=== PATIENT | male | born 1965 | race African-American/Black ===

== ENCOUNTER 2019-01-30 11:52 | Inpatient (IN) | payer OTHER ==
[2019-01-30 14:25] VITALS: BMI 43.5
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
[2019-01-30] MEDS ORDERED: MAGNESIUM HYDROX 2400MG/30ML ORAL SUSPENSION 30 ML CUP PO PRN (16:54)
[2019-01-30] MEDS ORDERED: IBUPROFEN 400 MG TABLET (FP) PO PRN (16:54)
[2019-01-30] MEDS ORDERED: MAGNESIUM CITRATE 300 ML BOTTLE PO PRN (16:54)
[2019-01-30] MEDS ORDERED: MENTHOL/PHENOL 1 EACH UD MM PRN (16:54)
[2019-01-30] MEDS ORDERED: MAG HYDROX/AL HYDROX/SIMETH 30 ML UNIT-DOSE CUP PO PRN (16:54)
[2019-01-30] MEDS ORDERED: hydrOXYzine PAMOATE 25 MG CAPSULE (FP) PO PRN (16:54)
[2019-01-30] MEDS ORDERED: P-EPHED 60MG/TRIPROLIDI 2.5MG TABLET PO PRN (16:54)
[2019-01-30] MEDS ORDERED: ACETAMINOPHEN 325 MG TABLET (FP) PO PRN (16:54)
[2019-01-30] MEDS ORDERED: guaiFENesin 200 MG/10 ML 10 ML UNIT-DOSE CUPS PO PRN (16:54)
[2019-01-30] MEDS ORDERED: LOPERAMIDE HCL 2 MG CAPSULE PO PRN (16:54)
[2019-01-30] MEDS ORDERED: TUBERCULIN PPD 5 TU/0.1ML VIAL ID ONE (19:30)
[2019-01-30] MEDS: THIAMINE HCL 100 MG TABLET (FP) PO SCH (21:21)
[2019-01-30] MEDS: MELATONIN 5 MG TABLETS PO PRN (21:21)
[2019-01-31 09:22] LABS: PH,URINE 5.5 (5.0-8.0); URINE APPEARANCE CLEAR; URINE BILIRUBIN NEGATIVE (NEGATIVE); URINE COLOR YELLOW; URINE GLUCOSE (UA) NEGATIVE (NEGATIVE); URINE KETONE NEGATIVE (NEGATIVE); URINE LEUK ESTERASE NEGATIVE (NEGATIVE); URINE NITRITE NEGATIVE (NEGATIVE); URINE PROTEIN NEGATIVE (NEGATIVE); URINE UROBILINOGEN 0.2 mg/dL (0.2-1.0)
[2019-01-31] MEDS: PRENATAL VITAMINS W/ FOLIC ACID TABLET (FP) PO SCH (09:41)
--- NOTE | 2019-01-31 11:26 | EKG ---
Test Reason : Blood Pressure : / mmHG Vent. Rate : 059 BPM Atrial Rate : 059 BPM P-R Int : 170 ms QRS Dur : 088 ms QT Int : 438 ms P-R-T Axes : 054 055 -31 degrees QTc Int : 433 ms SINUS BRADYCARDIA T WAVE ABNORMALITY, CONSIDER INFERIOR ISCHEMIA T WAVE ABNORMALITY, CONSIDER ANTEROLATERAL ISCHEMIA ABNORMAL ECG WHEN COMPARED WITH ECG OF 09-JUN-2017 06:02, NO SIGNIFICANT CHANGE WAS FOUND Confirmed by TALA HORTON MD ([id number]) on 01/31/2019 11:26:30 AM Referred By: CHRISTY CASEY Confirmed By:TALA HORTON MD
[2019-01-31 11:47] LABS: HEMATOCRIT 43.8 % (35.4-49); HEMOGLOBIN 14.3 GM/dL (11.7-16.9); MCH 27.4 pg (25.7-33.7); MCHC 32.7 g/dl (32.0-35.9); MEAN CELL VOLUME 83.6 fl (80-96); MEAN PLT VOLUME 10.1 fl (7.5-11.1); PLATELET COUNT 248 K/MM3 (134-434); RBC 5.24 M/mm3 (4.00-5.60); RDW 15.2 % (11.9-15.9); WHITE BLOOD COUNT 6.5 K/mm3 (4.0-10.0)
[2019-01-31 12:05] LABS: ALBUMIN 3.7 g/dl (3.4-5.0); BILIRUBIN,TOTAL 0.9 mg/dL (0.2-1); BLOOD UREA NITROGEN 11.1 mg/dL (7-18); CALCIUM 8.9 mg/dL (8.5-10.1); CREATININE 1.2 mg/dL (0.55-1.3); POTASSIUM 4.4 mmol/L (3.5-5.1); TOT PROT 7.1 g/dl (6.4-8.2)
[2019-01-31] MEDS: THIAMINE HCL 100 MG TABLET (FP) PO SCH (21:24)
[2019-01-31] MEDS: MELATONIN 5 MG TABLETS PO PRN (21:24)
[2019-02-01] MEDS: PRENATAL VITAMINS W/ FOLIC ACID TABLET (FP) PO SCH (09:51)
[2019-02-01] MEDS: THIAMINE HCL 100 MG TABLET (FP) PO SCH (21:26)
[2019-02-01] MEDS: MELATONIN 5 MG TABLETS PO PRN (21:27)
[2019-02-02] MEDS: PRENATAL VITAMINS W/ FOLIC ACID TABLET (FP) PO SCH (10:02)
[2019-02-02] MEDS: THIAMINE HCL 100 MG TABLET (FP) PO SCH (21:19)
[2019-02-02] MEDS: MELATONIN 5 MG TABLETS PO PRN (21:19)
[2019-02-03] MEDS: PRENATAL VITAMINS W/ FOLIC ACID TABLET (FP) PO SCH (10:14)
[2019-02-03] MEDS: MELATONIN 5 MG TABLETS PO PRN (21:28)
[2019-02-03] MEDS: THIAMINE HCL 100 MG TABLET (FP) PO SCH (21:28)
[2019-02-04 06:50] VITALS: PULSE 63
[2019-02-04] MEDS: PRENATAL VITAMINS W/ FOLIC ACID TABLET (FP) PO SCH (10:10)
[2019-02-04] MEDS ORDERED: COLLOIDAL OATMEAL 1 BAR EACH TP PRN (12:11)
--- NOTE | 2019-02-04 12:23 | PN ---
[facility] Progress Note (SOAP) Subjective: C/O DRY ITCHY SKIN. REPORTS USES HYDROCORTISONE CREAM FROM HIS DOCTOR. PT REPORTS [facility] [address] IS HIS PRIMARY CARE WITH DR. ZAKI ETIENNE HIS PCP. "I SCRATCH TILL I START BLEEDING". Objective: 02/04/19 12:15 Vital Signs - 24 hr 02/04/19 02/04/19 00:30 06:50 Temperature 97.7 F Pulse Rate 63 Respiratory 18 20 Rate Blood Pressure 106/70 Laboratory Tests 01/30/19 01/31/19 01/31/19 09:16 08:30 08:30 WBC 6.5 RBC 5.24 Hgb 14.3 Hct 43.8 MCV 83.6 MCH 27.4 MCHC 32.7 RDW 15.2 Plt Count 248 MPV 10.1 Sodium 142 Potassium 4.4 Chloride 109 H Carbon Dioxide 27 Anion Gap 6 L BUN 11.1 Creatinine 1.2 Est GFR (CKD-EPI)AfAm 78.43 Est GFR (CKD-EPI)NonAf 67.67 Random Glucose 105 Calcium 8.9 Total Bilirubin 0.9 AST 16 ALT 25 Alkaline Phosphatase 81 Total Protein 7.1 Albumin 3.7 Urine Color Yellow Urine Appearance Clear Urine pH 5.5 Ur Specific [place] 1.017 Urine Protein Negative Urine Glucose (UA) Negative Urine Ketones Negative Urine Blood Negative Urine Nitrite Negative Urine Bilirubin Negative Urine Urobilinogen 0.2 Ur Leukocyte Esterase Negative RPR Titer 01/31/19 08:30 WBC RBC Hgb Hct MCV MCH MCHC RDW Plt Count MPV Sodium Potassium Chloride Carbon Dioxide Anion Gap BUN Creatinine Est GFR (CKD-EPI)AfAm Est GFR (CKD-EPI)NonAf Random Glucose Calcium Total Bilirubin AST ALT Alkaline Phosphatase Total Protein Albumin Urine Color Urine Appearance Urine pH Ur Specific [place] Urine Protein Urine Glucose (UA) Urine Ketones Urine Blood Urine Nitrite Urine Bilirubin Urine Urobilinogen Ur Leukocyte Esterase RPR Titer Nonreactive SKIN:SKIN RED(FROM SCRATCHING) AND DRY ON LEFT INNER FOREARM. NO VISIBLE LESIONS NOTED. 02/04/19 12:25 Assessment: 02/04/19 12:23 CHRONIC DRY SKIN/ WITH ITCHINESS Plan: HYDROCORTISONE CREAM 1% APPLY DIRECTED.
[2019-02-04] MEDS: HYDROCORTISONE 0.5% TOPICAL CREAM 30 GM TUBE TP SCH ×2 (13:45→21:22)
[2019-02-04] MEDS: MINERAL OIL/PETROLAT/WATER TOPICAL CREAM 113 GM JAR TP SCH (13:45)
[2019-02-04] MEDS: THIAMINE HCL 100 MG TABLET (FP) PO SCH (21:22)
[2019-02-04] MEDS: MELATONIN 5 MG TABLETS PO PRN (21:22)
[2019-02-05 06:35] VITALS: BP 115/71; TEMP 97.2
--- NOTE | 2019-02-05 09:45 | PN ---
[facility] Progress Note (SOAP) Subjective: Patient to be discharged today. Objective: A+Ox3; no neurological deficit, heart rate regular, lungs clear, good capillary refill, abd soft, non-tender, non-distended, +BS, Skin clear, mucous membranes moist. 02/05/19 09:40 CBC, BMP 01/31/19 08:30 01/31/19 08:30 Vital Signs (72 hours) 02/03/19 02/03/19 02/03/19 00:30 03:30 06:49 Temperature 97.6 F Pulse Rate 61 Respiratory 18 18 20 Rate Blood Pressure 118/72 02/04/19 02/04/19 02/05/19 00:30 06:50 00:30 Temperature 97.7 F Pulse Rate 63 Respiratory 18 20 18 Rate Blood Pressure 106/70 02/05/19 02/05/19 03:30 06:34 Temperature 97.2 F L Pulse Rate 63 Respiratory 18 20 Rate Blood Pressure 115/71 Assessment: Medically stable for discharge Discharge Dx: PCP dependance Obesity 02/05/19 09:43 Plan: Discharge plan: will return to [facility] for aftercare, receives primary care at [facility] from Dr. Arteaga. No prescriptions needed.
[2019-02-05] MEDS: PRENATAL VITAMINS W/ FOLIC ACID TABLET (FP) PO SCH (10:01)
[2019-02-05] MEDS: MINERAL OIL/PETROLAT/WATER TOPICAL CREAM 113 GM JAR TP SCH (10:02)
[2019-02-05] MEDS: HYDROCORTISONE 0.5% TOPICAL CREAM 30 GM TUBE TP SCH (10:02)
== END 2019-02-05 10:54 | disposition home or self-care (01) | DRG 772 ==
LOC: YASAS 11:52 → Y5N 17:43
PROVIDERS: ADMIT Neuromusculoskeletal Medicine & OMM; ATTEND Neuromusculoskeletal Medicine & OMM
PROC: HZ42ZZZ Group Counseling for Substance Abuse Treatment, Cognitive-Behavioral (ICD-10-PCS; principal; 2019-01-30)
DX: F16.20 Hallucinogen dependence, uncomplicated (principal); F17.210 Nicotine dependence, cigarettes, uncomplicated; F32.9 Major depressive disorder, single episode, unspecified; L85.3 Xerosis cutis; L29.8 Other pruritus; E66.9 Obesity, unspecified; Z68.41 Body mass index [BMI] 40.0-44.9, adult; Z87.19 Personal history of other diseases of the digestive system
CPT/HCPCS: 36415; 80053; 81003; 85027; 86593; 93005; 93010